=== PATIENT | female | born 1980 ===

== ENCOUNTER → 2018-12-17 | Day surgery (SDC) | payer BC ==
[~2018-12-17] MED LIST: Acetaminophen IV 1GM/100ML * 1,000 MG/100 ML VIAL IVPB ONE; Acetaminophen IV 1GM/100ML * 100 ML ONE; Buffered Lidocaine 1% SYRIN* 1 ML/SYRINGE INTRADERM ONE; Bupivacaine 0.25% SDV PF* 10 ML VIAL INJ ONE; Dexamethasone IV* 4 MG/ML 1 ML (4 MG) ONE; DiMENhydriNATE IV* 50 MG/ML VIAL IV PUSH PRN; DiMENhydriNATE IV* 50 MG/ML VIAL ONE; Lactated Ringers 1000 ML Bag* 1,000 ML IV SCH; Lidocaine 1% INJ* 10 MG/ML 30 ML SDV ONE; Lidocaine 2% PF * 5 ML VIAL ONE; Midazolam* 1 MG/ML 2 ML VIAL (2 MG) ONE; Naloxone* 0.4 MG/ML 1 ML VIAL IV PRN; Ondansetron INJ* 2 MG/ML VIAL ONE; Propofol* 10 MG/ML 20 ML BTL ONE; Sodium Citrate/Citric Acid* 15 ML UDC ONE; Sodium Citrate/Citric Acid* 15 ML UDC PO ONE; fentaNYL* 50 MCG/ML 2 ML VIAL (100 MCG VIAL) IV PRN; fentaNYL* 50 MCG/ML 2 ML VIAL (100 MCG VIAL) ONE
[2018-12-17 20:37] VITALS: BP 118/63
--- NOTE | 2018-12-17 23:58 | OP ---
DATE OF OPERATION: 12/17/18 - [facility] DATE OF : 78 SURGEON: Vi Tillman MD. REGIONAL ADMINISTRATIVE ASSISTANT: Marisel Moon NP. ANESTHESIOLOGIST: John Hammer DO. ANESTHESIA: General endotracheal anesthesia. PRE-OP DIAGNOSIS: Large right thyroid nodule. POST-OP DIAGNOSIS: Large right thyroid nodule. OPERATIVE PROCEDURE: Right thyroid lobectomy. ESTIMATED BLOOD LOSS: Minimal, less than 10 cc. SPECIMEN: Right thyroid lobe. INDICATIONS: Ms. Fregoso is a very pleasant and healthy 38-year-old female with a history of a large right thyroid nodule. It has been biopsied multiple times as benign; however, given its large size and because she was becoming symptomatic, she wished to have an elective right thyroid lobectomy. She understood that the risks included, but were not limited to, bleeding, infection , injury to nearby structures such as the recurrent laryngeal nerve. She understood the alternatives and benefits as well and she wished to proceed. DESCRIPTION OF PROCEDURE: The patient was brought back to the operating room and placed on the operating table in the supine position. Sequential compression devices were placed on the bilateral lower extremities for DVT prophylaxis. No antibiotics were administered. General endotracheal anesthesia was induced and the electrodes with a nerve monitor were attached. A time-out was performed prior to administering local anesthesia to the neck. 0.25% Marcaine plus 1% lidocaine plain was administered to the anterior neck and the subcutaneous tissue. After this, the patient's neck was prepped and draped in normal sterile fashion. A second time-out was performed verifying the patient's name, date of , and the procedure to be performed, which is a right thyroid lobectomy. An approximately 4 cm incision was made in the anterior neck in the natural crease line, approximately 2 fingerbreadths above the sternal notch. The skin was divided down through the subcutaneous tissue. The platysma was divided and then the inferior and superior platysmal flaps were developed. Next, the median raphe between the strap muscles was identified and divided. The strap muscles were retracted laterally off of the isthmus of the thyroid. The large right thyroid nodule was easily palpable. The isthmus was divided, flushed with the left thyroid lobe. Then attention was turned towards the right thyroid lobe, which was the lobe to be removed. The medial attachments to the trachea were divided using LigaSure. The space of Fernandez between the cricothyroid muscle and the upper pole vessels was also developed and then the strap muscles were retracted laterally off of the thyroid lobe. The space lateral to the thyroid lobe was also developed and the middle thyroid vein was divided. The upper pole vessels were divided using a combination of LigaSure and 2-0 silk ties, and once this was done, the thyroid lobe was able to be mobilized medially and anteriorly out of the neck. The recurrent laryngeal nerve was identified both visually and with a nerve monitor. It was traced out in its entire course as it traversed towards the inferior constrictor muscles. After this was confirmed, thyroid lobe was able to be taken off of the trachea using LigaSure with great care to avoid injury to the recurrent laryngeal nerve. Once the specimen was removed, it was examined for parathyroid glands and none were identified. The upper pole was marked and carried off the table as specimen. Examination of the thyroid bed showed that there was an intact right upper parathyroid as well as a right lower parathyroid. After this, hemostasis was obtained. Tisseel was placed in the right lateral neck. The strap muscles were reapproximated using interrupted 4-0 Vicryl sutures. The platysma was reapproximated using interrupted 4-0 Vicryl sutures. The skin was closed using a running 5-0 Prolene suture. Sterile dressing was then placed. The patient's anesthesia was reversed, and she was taken to the PACU in stable condition. At the end of the case, all counts were correct and I was present during the entirety of the case. [id number] #: [id number] MAXI
== END | disposition home or self-care (01) ==
LOC: OR 09:00
PROVIDERS: ATTEND Surgery
DX: D34 Benign neoplasm of thyroid gland (principal); Z88.0 Allergy status to penicillin
CPT/HCPCS: 81025; 88307; A9270-GY; C1776; J1100; J1240; J2250; J2405; J2704; J3010; J3490